=== PATIENT | female | born 1985 | race Caucasian/White ===

== ENCOUNTER → 2017-06-25 | Day surgery (SDC) | payer BC ==
[2017-06-18 11:42] VITALS: BMI 29.0
[~2017-06-25] VITALS: Ht 157.5 cm; Wt 72.3 kg
[~2017-06-25] MED LIST: ATROPINE SULFATE 0.1 MG/ML 5ML SYR IV PRN; EpHEDrine SULFATE INJ 50 MG/ML AMP IV PRN; LIDOCAINE HCL 2% 2 ML VIAL (20MG/ML) ONE; PRILOSEC PO; PROPOFOL IV EMULSION 10 MG/ML 20 ML VIAL IV ONE; SODIUM CHLORIDE 0.9% 500ML 500 ML IV ONE
[2017-06-25 11:05] VITALS: Ht 157.5 cm; Wt 72.3 kg
--- NOTE | 2017-06-25 12:14 | Endo History and Physical ---
History & Physical Date of Service: Jun 25, 2017. Chief Complaint: ABD DISCOMFORT, EPIGASTRIC PAIN Referring Physician: YUSRA SMITH PA-C History of Present Illness 32 yo CF who presents for EGD secondary to epigastric abdominal pain. Past Surgical History Hx Cardiac Surgery: No Hx Internal Defibrillator: No Hx Pacemaker: No Hx Abdominal Surgery: No Hx of Implantable Prosthesis: No Hx Cancer Surgery: No Hx Thoracic Surgery: No Hx Orthopedic: No Hx Urinary Tract Surgery: No Family History Polyp, IBD Social History Smoking Status: Never Smoker Hx Substance Use: No Hx Alcohol Use: Yes (OCCASIONALLY) Allergies Coded Allergies: Chlorine (Verified Allergy, Unknown, SKIN IRRIATIONS/HARD TO BREATHE IF INCREASED CHLORINE, 06/18/17) Cranberries (Verified Allergy, Unknown, VOMITTING, 06/18/17) Current Medications Reported Home Medications Medications Dose Route/Sig Max Daily Dose Days Date Category Dose Instructions [Prilosec] 1 Tab PO QAM 06/18/17 Reported ? DOSAGE Vital Signs Weight (Kilograms): 72.27 Height (Feet): 5 Height (Inches): 2 Date Time Temp Pulse Resp B/P (MAP) Pulse Ox O2 Delivery O2 Flow Rate FiO2 06/25/17 11:13 36.5 78 20 137/74 (95) 100 Room Air Physical Exam General Appearance: WD/WN, no apparent distress Respiratory/Chest: Auscultation: breath sounds normal Cardiovascular: Heart Auscultation: RRR Abdomen: Bowel Sounds: normal Inspection & Palpation: soft, non-distended, no tenderness, guarding & rebound Assessment and Plan Assessment: 32 yo CF who presents for EGD secondary to epigastric abdominal pain. Plan: Proceed with EGD
--- NOTE | 2017-06-25 12:41 | GI REPORT ---
Procedure Date: 06/25/2017 11:41 AM Procedure: Upper GI endoscopy Indications: Epigastric abdominal pain Medicines: Monitored Anesthesia Care Complications: No immediate complications. Estimated Blood Loss: Estimated blood loss: none. Procedure: Pre-Anesthesia Assessment: - Prior to the procedure, a History and Physical was performed, and patient medications and allergies were reviewed. The patient's tolerance of previous anesthesia was also reviewed. The risks and benefits of the procedure and the sedation options and risks were discussed with the patient. All questions were answered, and informed consent was obtained. Prior Anticoagulants: The patient has taken no previous anticoagulant or antiplatelet agents. ASA Grade Assessment: II - A patient with mild systemic disease. After reviewing the risks and benefits, the patient was deemed in satisfactory condition to undergo the procedure. After obtaining informed consent, the endoscope was passed under direct vision. Throughout the procedure, the patient's blood pressure, pulse, and oxygen saturations were monitored continuously. The scope was introduced through the mouth, and advanced to the second part of duodenum. The upper GI endoscopy was accomplished without difficulty. The patient tolerated the procedure well. Findings: The esophagus was normal. The entire examined stomach was normal. Biopsies were taken with a cold forceps for Helicobacter pylori testing. The examined duodenum was normal. Impression: - Normal esophagus. - Normal stomach. Biopsied. - Normal examined duodenum. Recommendation: - Resume previous diet. - Continue present medications. - Await pathology results. - Return to primary care physician as previously scheduled. Jesse Lennon DO 06/25/2017 12:41:05 PM This report has been signed electronically. Note Initiated On: 06/25/2017 11:41 AM I attest to the content of the Intraoperative Record and orders documented therein, exceptions below
--- NOTE | 2017-06-25 12:43 | Discharge Instructions ---
Endoscopy Patient Instructions Date / Procedure(s) Performed Jun 25, 2017. EGD Allergy Information Coded Allergies: Chlorine (Verified Allergy, Unknown, SKIN IRRIATIONS/HARD TO BREATHE IF INCREASED CHLORINE, 06/18/17) Cranberries (Verified Allergy, Unknown, VOMITTING, 06/18/17) Discharge Date / Findings Jun 25, 2017. Biopsies of gastric antrum Medication Instructions OK to resume all medications today as prescribed Reported Home Medications Medications Dose Route/Sig Max Daily Dose Days Date Category Dose Instructions [Prilosec] 1 Tab PO QAM 06/18/17 Reported ? DOSAGE Provider Instructions Activity Restrictions - No exercising or heavy lifting for 24 hours. - Do not drink alcohol the day of the procedure. - Do not drive a car or operate machinery until the day after the procedure. - Do not make any important decisions or sign important papers in 24 hours after the procedure. Following Day: - Return to full activity which may include returning to work/school. Diet Start your diet with liquids and light foods (jello, soup, juice, toast). Then eat your usual diet if not nauseated. Treatment For Common After Affects For mild abdominal pain, bloating, or excessive gas: - Rest - Eat lightly - Lie on right side Follow-Up Information Follow-up with YUSRA SMITH PA-C as scheduled Anesthesia Information What You Should Know You have had a procedure that required some medicine to reduce anxiety and discomfort. This treatment is called moderate sedation. After receiving the treatment, you may be sleepy, but you will be able to breathe on your own. The effects of the treatment may last for several hours. Follow these instructions along with Activity/Diet recommendations noted above: * Do NOT do anything where dizziness or clumsiness would be dangerous. * Rest quietly at home today, then you can be up and about tomorrow. * Have a responsible person stay with you the rest of today. * You may have had an I.V. today. If so, you may take the dressing off later today. Recommendations Call your doctor if: * Trouble breathing * Continuous vomiting for more than 24 hours * Temperature above 101 degrees * Severe abdominal pain or bloating * Pain not relieved by pain medicine ordered * There is increased drainage or redness from any incision * A large amount of rectal bleeding greater than 2-3 tablespoons. (If you had a polyp/s removed or have hemorrhoids, a small amount of blood - from the rectum is to be expected.) * You have any unanswered questions or concerns. IN THE EVENT OF A SERIOUS EMERGENCY, GO TO THE NEAREST EMERGENCY ROOM Your discharge instructions were prepared by provider Jesse Lennon. Patient Instructions Signature Page Aparna Mcclendon Patient (or Guardian) Signature/Date: I have read and understand the instructions given to me by my caregivers. Caregiver/RN/Doctor Signature/Date: The above-named patient and/or guardian has received patient instructions on this date. + Original Patient Signature Page (only) stays with chart. Please make copy for patient.
--- NOTE | 2017-06-25 12:55 | Anesthesiology Progress Note ---
Anesthesia Post Op Note Date & Time Jun 25, 2017 at 12:55 Vital Signs Pain Intensity: 0 Vital Signs Past 12 Hours Date Time Temp Pulse Resp B/P (MAP) Pulse Ox O2 Delivery O2 Flow Rate FiO2 06/25/17 12:52 65 18 122/83 (96) 99 Room Air 06/25/17 12:38 64 16 107/65 (79) 99 Room Air 06/25/17 11:13 36.5 78 20 137/74 (95) 100 Room Air Notes Mental Status: alert / awake / arousable, participated in evaluation Pt Amnestic to Procedure: Yes Nausea / Vomiting: adequately controlled Pain: adequately controlled Airway Patency, RR, SpO2: stable & adequate BP & HR: stable & adequate Hydration State: stable & adequate Anesthetic Complications: no major complications apparent
[2017-06-25 13:10] VITALS: BP 121/78; PULSE 57; O2SAT 98
== END | disposition home or self-care (01) ==
LOC: C.GI 10:46
PROVIDERS: ATTEND Internal Medicine
DX: K29.50 Unspecified chronic gastritis without bleeding (principal); R10.13 Epigastric pain; Z83.79 Family history of other diseases of the digestive system

== ENCOUNTER → 2017-11-21 | Outpatient (CLI) | payer BC ==
[~2017-11-21] MED LIST changes: -ATROPINE SULFATE 0.1 MG/ML 5ML SYR IV PRN; -EpHEDrine SULFATE INJ 50 MG/ML AMP IV PRN; -LIDOCAINE HCL 2% 2 ML VIAL (20MG/ML) ONE; -PROPOFOL IV EMULSION 10 MG/ML 20 ML VIAL IV ONE; -SODIUM CHLORIDE 0.9% 500ML 500 ML IV ONE
--- NOTE | 2017-11-21 13:57 | DIAGNOSTIC IMAGING REPORT ---
NUCLEAR GASTRIC EMPTYING STUDY: CLINICAL HISTORY: R14.0 [id number] Early [id number] COMPARISON STUDY: None TECHNIQUE: Following the oral administration of 1.0 mCi of technetium 99m sulfur colloid in egg sandwich and 8 ounces of water, static abdominal images are performed anteriorly and posteriorly at 0 minutes, 1 hour, 2 hours, and 4 hour time intervals. Gastric emptying was calculated utilizing the geometric mean method. FINDINGS: There is approximately 84 % gastric activity remaining at the 1 hour time interval, 51 % at the 2 hour time interval (normal is less than 60%), and 1 % remaining at the 4 hour time interval (normal is less than 10%). These findings are consistent with a normal study IMPRESSION: Findings are consistent with a normal study Electronically signed by: Puma Tamez M.D. 11/21/2017 1:56 PM Dictated Date/Time: 11/21/2017 1:55 PM
== END | disposition home or self-care (01) ==
LOC: C.NUCL 08:50
PROVIDERS: ATTEND Physician Assistant
DX: R68.81 Early satiety (principal); R14.0 Abdominal distension (gaseous)